=== PATIENT | female | born 1965 | race Caucasian/White ===

== ENCOUNTER 2019-06-08 08:53 | Outpatient (CLI) | payer OTHER, SELFPAY ==
--- NOTE | 2019-06-08 09:01 | MM_ITS ---
WS: [id number] DIAGNOSTIC LEFT DIGITAL MAMMOGRAM WITH CAD LEFT ultrasound, limited HISTORY: ABNORMAL MAMMOGRAM LT BREAST COMPARISON: 11/10/2018, 09/29/2018, 07/29/2017 and 07/19/2016 Technique: CC, MLO and ML views. Spot compression CC and MLO. Breast composition: The breasts are heterogeneously dense, which may obscure small masses. Asymmetry measuring 6.2 mm persists in the posterior fatty tissue. This abnormality is just above the nipple l ine on the lateral projection. No increase in size on prior studies. LEFT breast ultrasound, limited. Ultrasound directed from the 11-3 o'clock axis. There is a small cyst at 12:00, 5 cm from the nipple measuring 4 x 4 by 5 mm. There is a minimally complex ovoid cyst at 2:00, 3 cm from the nipple measur ing 9 x 3 x 5 mm. This may correspond to the abnormality on the mammogram. There are no suspicious fi ndings to suggest malignancy by ultrasound. MM/[place] [id number] IMPRESSION: BI-RADS: 3-Probably Benign FOLLOW UP: 6 Month Follow-up Patient to return for annual mammogram in September 2019. Diagnostic imaging of the LEFT breast should also be obtained. At that time the mass in the posterior LEF T breast should be reevaluated by additional views and mammography to continue to document stability.
== END 2019-06-08 08:54 | disposition home or self-care (01) ==
LOC: RADSHAW 08:57
PROVIDERS: Visit Provider Obstetrics & Gynecology
DX: R92.8 Other abnormal and inconclusive findings on diagnostic imaging of breast (principal); N60.02 Solitary cyst of left breast
CPT/HCPCS: 76642; 77065

== ENCOUNTER → 2019-11-23 16:19 | Outpatient (BNVA) | payer OTHER, SELFPAY | PROVIDERS: Visit Provider Family Medicine | DX: G47.00 Insomnia, unspecified (principal); I10 Essential (primary) hypertension | CPT/HCPCS: 80053; 80061; 85025 ==

== ENCOUNTER 2019-12-11 09:36 | Outpatient (CLI) | payer OTHER, SELFPAY ==
--- NOTE | 2019-12-11 09:42 | US_ITS ---
WS: [id number] Left breast ultrasound, 12/11/2019 Clinical Data: abnormal mammogram of left breast Comparison: Left breast ultrasound, 06/08/2019. Findings: There are 2 cysts in the left breast unchanged. One cyst is 5 cm from the nipple 12:00 measuring 0.58 x 0.37 x 0.63 cm and the other is at 2:00 3 cm from the nipple measuring 0.36 x 0.46 x 0.98 cm. No i nternal echoes are seen. The borders are smooth and complete. US/US breast LT limited* [id number] Impression: 1. 2 small unchanging left breast cysts. 2. Recommend annual screening mammogram BIRADS: 2-Benign FOLLOW UP: See Report
--- NOTE | 2019-12-11 09:42 | MM_ITS ---
WS: [id number] Left breast diagnostic digital mammogram, 12/11/2019 Clinical Data: abnormal mammogram of left breast Comparison: 06/08/2019, 11/10/2018, 09/29/2018, 08/19/2017, 07/29/2017, 07/19/2016, 07/07/2015, 05/28/2014, 04/30, 07/04/2007, 07/02/2006, 02/22/2006, 01/29/2006. Findings: The left breast shows heterogeneous density. The density in the total aspect of left breast is still present but it has no suspicious findings. No spiculated masses or clustered calcifications are seen. There are no secondary signs of carcinoma. MM/[place] [id number] Impression: 1. Negative left breast mammogram. 2. Return for routine screening mammograms. BIRADS: 1-Negative FOLLOW UP: See Report The CAD land checker was used.
== END 2019-12-11 09:37 | disposition home or self-care (01) ==
PROVIDERS: PCP Family Medicine; Visit Provider Obstetrics & Gynecology
DX: R92.8 Other abnormal and inconclusive findings on diagnostic imaging of breast (principal)
CPT/HCPCS: 76642; 77065

== ENCOUNTER 2020-10-07 07:46 | Outpatient (CLI) | payer OTHER, SELFPAY ==
--- NOTE | 2020-10-07 07:50 | MM_ITS ---
WS: [id number] Bilateral screening digital mammogram, 10/07/2020 Clinical Data: SCREENING Comparison: 12/11/2019, 06/08/2019, 11/10/2018, 09/29/2018, 08/19/2017, 07/29/2017, 07/19/2016, 07/07/2015, 05/01, 05/26/2010, 07/04/2007, 07/02/2006, 02/22/2006, 01/29/2006. Findings: The breast parenchymal pattern shows heterogeneous density No spiculated masses or clustered calcifi cations are seen. There are no secondary signs of carcinoma. MM/[place] [id number] Impression: 1. Negative bilateral mammogram unchanged. 2. Recommend annual screening mammograms. BIRADS: 1-Negative FOLLOW UP: 1 Year Follow-up The CAD tool checker was used.
== END 2020-10-07 07:47 | disposition home or self-care (01) ==
LOC: RADSHAW 07:48
PROVIDERS: PCP Family Medicine; Visit Provider Family Medicine
DX: Z12.31 Encounter for screening mammogram for malignant neoplasm of breast (principal)
CPT/HCPCS: 77067

== ENCOUNTER → 2020-10-20 17:41 | Outpatient (BNVA) | payer OTHER, SELFPAY | PROVIDERS: PCP Family Medicine; Visit Provider Family Medicine | DX: E78.5 Hyperlipidemia, unspecified (principal); G47.00 Insomnia, unspecified; I10 Essential (primary) hypertension | CPT/HCPCS: 80053; 80061; 84443; 85025 ==

== ENCOUNTER → 2021-03-27 09:22 | Outpatient (BNVA) | payer OTHER, SELFPAY | PROVIDERS: PCP Family Medicine; Visit Provider Family Medicine Adult Medicine | DX: R30.9 Painful micturition, unspecified (principal) | CPT/HCPCS: 81000 ==

== ENCOUNTER → 2021-08-11 09:46 | Outpatient (BNVA) | payer BC, SELFPAY | PROVIDERS: PCP Family Medicine; Visit Provider Family Medicine | DX: E78.5 Hyperlipidemia, unspecified (principal); G47.00 Insomnia, unspecified; I10 Essential (primary) hypertension | CPT/HCPCS: 80053; 80061; 84443; 85025 ==

== ENCOUNTER 2021-10-13 07:23 | Outpatient (CLI) | payer BC, SELFPAY ==
--- NOTE | 2021-10-13 07:28 | MM_ITS ---
WS: [id number] SCREENING DIGITAL BREAST TOMOSYNTHESIS MAMMOGRAM WITH CAD HISTORY: SCREEN COMPARISON: 10/07/2020, 12/11/2019, 09/29/2018, 06/08/2019 Bilateral CC and MLO with tomosynthesis and synthetic mammography submitted. Computer aided detection analyzed. Breast composition: There are scattered areas of fibroglandular density. Seen best on the RIGHT CC pr ojection at a middle depth is an area of architectural distortion seen on image 35/56. Not definitely visualized on the lateral projection but may be just above the nipple line. There is an asymmetry in the posterior LEFT breast which has been present on multiple prior examinations posterior and centra l to the nipple. This is at 12:00. MM/[place] [id number] IMPRESSION: BI-RADS: 0-Incomplete: Need additional imaging evaluation FOLLOW UP: Need Additional Imaging RIGHT breast: Spot compression views (CC and MLO). True ML. Ultrasound to follo w if abnormality persists.
== END 2021-10-13 07:24 | disposition home or self-care (01) ==
LOC: RAD 07:23
PROVIDERS: PCP Family Medicine; Visit Provider Surgery
DX: Z12.31 Encounter for screening mammogram for malignant neoplasm of breast (principal)
CPT/HCPCS: 77063; 77067

== ENCOUNTER → 2021-11-13 08:53 | Outpatient (BNVA) | payer BC, SELFPAY | PROVIDERS: PCP Family Medicine; Visit Provider Family Medicine | DX: E78.5 Hyperlipidemia, unspecified (principal) | CPT/HCPCS: 80061 ==

== ENCOUNTER 2021-11-21 08:32 | Outpatient (CLI) | payer BC, SELFPAY ==
--- NOTE | 2021-11-21 08:43 | MM_ITS ---
WS: [id number] ADDITIONAL VIEWS RIGHT MAMMOGRAM WITH DIGITAL BREAST TOMOSYNTHESIS. RIGHT BREAST ULTRASOUND HISTORY: Architectural distortion RIGHT breast. COMPARISON: 10/13/2021 and 10/07/2020 and 10/26/2018 RIGHT MAMMOGRAM: Spot compression views and true ML with digital breast tomosynthesis and SM. Architectural distortion and increased density persists along the 12:00 axis. This distortion extends from medial to lateral. RIGHT BREAST ULTRASOUND 2-D and color Doppler imaging submitted. Ultrasound directed to the superior breast centered at 12:00. There is no mass identified. There is m ild distortion along the 12:00 axis. No mass is identified. These changes on the mammogram and ultras ound are most likely all due to the prior surgical biopsy. MM/[place] [id number] IMPRESSION: BI-RADS: 2-Benign FOLLOW UP: 1 Year Follow-up Architectural distortion corresponds to the prior surgical biopsy. No underlyin g mass.
== END 2021-11-21 08:33 | disposition home or self-care (01) ==
PROVIDERS: PCP Family Medicine; Visit Provider Family Medicine
DX: R92.8 Other abnormal and inconclusive findings on diagnostic imaging of breast (principal)
CPT/HCPCS: 76642; 77061

== ENCOUNTER → 2022-02-12 12:28 | Outpatient (BNVA) | payer OTHER, SELFPAY | PROVIDERS: PCP Family Medicine; Visit Provider Family Medicine | DX: M25.552 Pain in left hip (principal) | CPT/HCPCS: 73502 ==

== ENCOUNTER 2022-03-29 06:00 | Outpatient (RCR) | payer OTHER, SELFPAY | END 2022-04-28 23:59 | disposition home or self-care (01) | LOC: TPT 06:00 | PROVIDERS: PCP Family Medicine; Visit Provider Family Medicine | DX: M70.72 Other bursitis of hip, left hip (principal) | CPT/HCPCS: 97110; 97162 ==

== ENCOUNTER 2022-04-29 06:00 | Outpatient (RCR) | payer OTHER, MEDICAID, SELFPAY | END 2022-05-29 23:59 | disposition home or self-care (01) | LOC: TPT 06:00 | PROVIDERS: PCP Family Medicine; Visit Provider Family Medicine | DX: M70.72 Other bursitis of hip, left hip (principal) | CPT/HCPCS: 97110 ==

== ENCOUNTER → 2022-07-03 11:29 | Outpatient (BNVA) | payer OTHER, MEDICAID, SELFPAY | PROVIDERS: PCP Family Medicine; Visit Provider Family Medicine | DX: E78.5 Hyperlipidemia, unspecified (principal); I10 Essential (primary) hypertension | CPT/HCPCS: 80053; 80061; 84443; 85025 ==

== ENCOUNTER → 2022-10-15 10:48 | Outpatient (BNVA) | payer OTHER, MEDICAID, SELFPAY | PROVIDERS: PCP Family Medicine; Referring Provider Family Medicine; Visit Provider Student in an Organized Health Care Education/Training Program | DX: M19.041 Primary osteoarthritis, right hand (principal); M65.341 Trigger finger, right ring finger; M72.0 Palmar fascial fibromatosis [Dupuytren] | CPT/HCPCS: 73130 ==

== ENCOUNTER 2022-11-26 07:54 | Outpatient (CLI) | payer OTHER, MEDICAID, SELFPAY ==
--- NOTE | 2022-11-26 08:08 | MM_ITS ---
WS: [id number] BILATERAL SCREENING DIGITAL TOMOSYNTHESIS MAMMOGRAM WITH CAD HISTORY: SCREENING COMPARISON: 12/11/2019, 09/29/2018, 10/07/2019, 10/07/2020 Bilateral CC and MLO views with tomosynthesis and synthetic mammography submitted. Computer aided det ection analyzed. Breast composition: The breasts are heterogeneously dense, which may obscure small masses. No suspici ous masses, microcalcifications or architectural distortion. There are 2 nodules/asymmetries in the L EFT breast which have been present since at least 2018. Both of these asymmetries are in the posterio r breast. One is at 12:00 and one in the upper outer quadrant. Prior imaging studies demonstrated no significant findings and cysts were identified. RIGHT breast is negative. MM/[place] [id number] IMPRESSION: BI-RADS: 2-Benign FOLLOW UP: 1 Year Follow-up
== END 2022-11-26 07:55 | disposition home or self-care (01) ==
PROVIDERS: PCP Family Medicine; Visit Provider Family Medicine
DX: Z12.31 Encounter for screening mammogram for malignant neoplasm of breast (principal)
CPT/HCPCS: 77063; 77067

== ENCOUNTER 2023-01-03 05:43 | Day surgery (SDC) | payer OTHER, MEDICAID, SELFPAY ==
[2023-01-02 09:37] VITALS: BMI 24.1
[2023-01-03 06:01] VITALS: BP 180/90; PULSE 52; RESP 16; TEMP 37.1; O2SAT 97
[2023-01-03] MEDS: sodium chloride 0.9% 1,000 ML 30 ML IV (06:05)
[2023-01-03] MEDS: ketorolac 30 mg/mL INJ IVP (06:05)
[2023-01-03] MEDS: acetaminophen 1,000 MG/100 ML PIGGYBACK 400 MG IV (06:05)
[2023-01-03 06:24] VITALS: BMI 24.1
--- NOTE | 2023-01-03 06:51 | ANES.PREANE2 ---
Pre-Anesthetic Assessment Height/Weight: Height 1.57 m Weight 59.874 kg Temp Pulse Resp BP Pulse Ox O2 Del Method 98.7 F 52 L 16 180/90 97 Room Air 01/03/23 06:01 01/03/23 06:01 01/03/23 06:01 01/03/23 06:01 01/03/23 06:01 01/03/23 06:02 Preop Diagnosis: Right middle and right ring finger trigger Operation Date: 01/03/23 07:00 Proposed Procedures p RIGHT MIDDLE AND RING FINGER TRIGGER FINGER RELEASE [id number], M65.30 M72.0(Right) - Juan Vicky, DO Familial anesthetic complications: None Was Beta Sami taken within 24 hours: N/A Was Clonidine taken within 24 hours: N/A Last intake: Intake Last Liquid Date 01/02/23 Last Liquid Time 23:00 Last Solid Date 01/02/23 Last Solid Time 23:00 Social No alcohol and No tobacco Exam alert, oriented x 3, clear to auscultation bilaterally and regular rate & rhythm Airway Mallampati: Class I Dentition: full CV/HEM Hypertension Metabolic Hyperlipidemia Anesthetic Plan ASA status: 2 Anesthesia: MAC Risk of > 500 ml blood loss (7ml/kg in children): No Medications/Allergies Home Medications Medication Instructions Recorded Confirmed Last Taken Type ascorbic acid (vitamin C) 1,000 mg 500 mg PO DAILY 08/11/21 01/02/23 01/01/23 History tablet aspirin 81 mg tablet,delayed 81 mg PO DAILY 08/11/21 01/02/23 01/02/23 History release (Adult Low Dose Aspirin) cholecalciferol (vitamin D3) 25 25 mcg PO DAILY 08/11/21 01/02/23 11/13/22 History mcg (1,000 unit) capsule zinc gluconate 50 mg tablet 50 mg PO DAILY 02/12/22 01/02/23 01/02/23 History buspirone 7.5 mg tablet See Rx Instructions .Route 06/06/22 01/02/23 01/02/23 Rx .COMPLEX #60 tabs omega 9-oth-cre-fish oil 1,000 mg 1 cap PO BID #60 caps 07/03/22 01/02/23 01/02/23 Rx (120 mg-180 mg) capsule (Fish Oil) fenofibrate 160 mg tablet 160 mg PO DAILY #30 tabs 10/12/22 01/02/23 01/02/23 Rx temazepam 30 mg capsule 30 mg PO .qhs PRN sleep #30 caps 10/12/22 01/02/23 01/02/23 Rx estradiol 1 mg tablet See Rx Instructions .Route 11/26/22 01/02/23 01/02/23 Rx .COMPLEX #30 tabs lisinopril 20 mg tablet See Rx Instructions .Route 11/26/22 01/02/23 01/02/23 Rx .COMPLEX #60 tabs metoprolol tartrate 25 mg tablet See Rx Instructions .Route 11/26/22 01/02/23 01/02/23 Rx .COMPLEX #60 tabs rosuvastatin 5 mg tablet See Rx Instructions .Route 12/28/22 01/02/23 01/01/23 Rx .COMPLEX #30 tabs Allergies Allergy/AdvReac Type Severity Reaction Status Date / Time Sulfa (Sulfonamide Allergy hives rash Verified 01/02/23 09:34 Antibiotics) Current Medications Generic Name Dose Route Start Last Admin Trade Name Freq PRN Reason Stop Dose Admin Sodium Chloride 1,000 mls @ 30 mls/hr 01/03/23 06:00 01/03/23 06:25 Sodium Chloride 0.9% IV 01/04/23 05:59 30 mls/hr .Q24H JENNIFER Infusion PFS Anesthesia Medical History Chronic headache Fibroadenoma of right breast Identified on mammogram in 2018. Had ultrasound-guided biopsy with path showing fibroadenoma. Had removed later that year. Hyperlipidemia Hypertension Surgical History H/O right breast biopsy (09/16/17) Ultrasound-guided needle biopsy. Right breast lump identified on mammogram. Performed by Dr. Russell in radiology History of lumpectomy of right breast (~02/2018) Performed by Dr. Estrada. Path showed fibroadenoma History of tonsillectomy and adenoidectomy S/P total abdominal hysterectomy (07/26/00) AMI with Reyes. Dx: Menometrorrhagia, Anemia, LIYA. Performed by Dr. Torres at [facility] in [place], [place] Family History Father Heart disease Diabetes Hypertension Hypercholesteremia Mother Hypertension Hypercholesteremia Breast cancer Phylloides tumor of the breast Social History Smoking and tobacco status: never smoked Alcohol intake: never Substance/Drug Use: never Data Anesthesia 01/03/23 06:10 Cardiac Studies: No Data to Display
[2023-01-03 06:55] LABS: Blood Urea Nitrogen 12 mg/dL (6-20); Calcium 9.7 mg/dL (8.5-10.5); Carbon Dioxide 23 mmol/L (22-29); Chloride 106 mmol/L (98-107); Glomerular Filtration Rate 126.3 mL/min (90-130); Glucose 90 mg/dL (65-115); Osmolality Calculated 291 mOsm/kg (285-295); Sodium 141 mmol/L (136-145)
--- NOTE | 2023-01-03 06:57 | W.PM.OPSUD ---
Surgery/Procedure H&P Update DATE OF PROCEDURE: January 03, 2023 DATE H&P PERFORMED: 12/11/22 CHANGES TO PREVIOUS DOCUMENTATION: None no change in HPI visit from office visit on 12/11/2022. Patient has right middle and right ring finger triggers. She understands and the procedure the risk benefits complication alternatives with surgery. She is failed conservative treatment elects proceed with surgical intervention all questions answered at this time proceed with right middle and ring finger trigger releases. PREOP DIAGNOSIS: Right middle and right ring finger trigger PRIMARY INDICATION FOR PROCEDURE: Right middle and right ring finger trigger PLANNED PROCEDURE: Operation Date: 01/03/23 07:00 Proposed Procedures p RIGHT MIDDLE AND RING FINGER TRIGGER FINGER RELEASE [id number], M65.30 M72.0(Right) - Juan Perry DO
[2023-01-03] MEDS: ceFAZolin 2,000 MG in sodium chloride 0.9% (plus) 50 ML 100 MG IV (07:04)
[2023-01-03 07:11] LABS: Anion Gap 16.2 (5-19); Potassium 4.2 mmol/L (3.5-5.1)
[2023-01-03] MEDS: BUPivacaine 0.5% INJ 10 mL 5 ML INJECTION (07:20)
[2023-01-03] MEDS: ROPivacaine 0.5% SDV 30 mL 25 MG INJECTION (07:20)
--- NOTE | 2023-01-03 07:51 | PM.OP2 ---
Brief Operative Note Date of procedure: 01/03/23 Pre-op diagnosis: Right middle and right ring finger trigger Post-op diagnosis: same Procedure Done: Right middle finger trigger release Right ring finger trigger release Surgeon: Juan Perry Estimated blood loss (mL): 2 Complications: None Post-op Plan: Patient taken to PACU in stable condition recovering well receive appropriate discharge instruction as well as pain medication postoperatively. Encourage finger range of motion. We will follow-up in the orthopedic office in 2 weeks. Condition: stable Disposition: same day Coding Level of Care Code Acute Code for Ame Lee
[2023-01-03 07:52] VITALS: BP 131/68; PULSE 52; RESP 18; TEMP 36.1; O2SAT 98
--- NOTE | 2023-01-03 07:52 | P.PCN_ITS ---
PACU note Narrative: Patient taken to PACU in stable condition recovering well fingertips warm well- perfused brisk capillary refill less than 2 seconds right hand upper extremity dressings clean dry and intact. She is able to wiggle her fingers she has some decreased sensation secondary to local anesthesia. Exam: awake Disposition: discharged
--- NOTE | 2023-01-03 07:53 | P.OP_ITS ---
Operative Report Date of procedure: January 03, 2023 Surgeon: Juan Perry DO Procedure: Post-op diagnosis: Same Procedure done: Right middle finger?trigger?release Right ring finger trigger release Surgeon: Juan Perry DO Estimated blood loss: 2 cc Tourniquet time 11 minutes Complications: None Condition: stable Disposition: same day Brief History: Patient's been seen and worked up in the outpatient setting and findings consistent with preoperative diagnosis of right middle and right ring finger?trigger.? Patient failed conservative treatment of cortisone injection pain is completely returned. We talked about treatment options nonoperative versus operative intervention.? ?Patient understands the risk benefits complication alternatives of surgical nonsurgical treatment options.? Understan ding his risks with surgery patient elects proceed with surgical intervention.? Consent obtained in the office.? Here today to proceed with surgical intervention.? All questions answered. Procedure: Patient was seen and evaluated in the preoperative holding area.? Consent was reviewed and signed with patient.? Seen evaluated by Anesthesia Department.? Once cleared for surgery was brought back to the operative suite.? Kept in supine position on [facility]. Patient's right arm was then placed to the armboard.? A nonsterile tourniquet applied to the right upper arm.? Patient's right upper extremity was then prepped and draped in standard orthopedic fashion.? Final timeout performed.? Patient received appropriate preoperative antibiotics. Esmarch tourniquet was used exsanguinate the right upper extremity tourniquet insufflated to 250 mmHg. Under sterile aseptic technique local digital block was performed to the right middle and right ring finger.? Once appropriately anesthetized a standard oblique incision was made centering over the A1 nam of both fingers following patient's flexor crease.? Sharp scalpel incision was made only through skin and then switched to Littler dissection scissors and spread longitudinally directly over the flexor tendon sheath of the middle finger first.? I then mobilized both radially and ulnarly and Kasdan retractors were used and placed by my dental assistant medical assistant to protect neurovascular bundle.? Next I visualized the A1 nam and this was incised with a scalpel.? I then switched to dissection scissors and released the A1 nam both proximally as well as distally to its entirety.? Significant tendon sheath fluid was noted consistent with inflammation.? Mild fraying of the flexor tendons noted but no tear.? At this point I utilized a rag nail and pulled the tendons FDS and FDP out of the incision and no?triggering was noted.? Next focused my attention towards the ring finger. There was a thick band of fascia consistent with early Dupuytren's this was transected to come down directly over to the ring finger flexor tendon sheath. I then spread longitudinally, I then mobilized both radially and ulnarly and Kasdan retractors were used and placed by my dental assistant medical assistant to protect neurovascular bundle.? Next I visualized the A1 nam of the ring finger and this was incised with a scalpel.? I then switched to dissection scissors and released the A1 nam both proximally as well as distally to its entirety.? Significant tendon sheath fluid was noted consistent with inflammation.? Mild fraying of the flexor tendons noted but no tear.? At this point I utilized a rag nail and pulled the tendons FDS and FDP out of the incision and no?triggering was noted.? I then had anesthesia wake up the patient and patient was able to actively flex and extend with no?triggering.? This point thorough irrigation was performed.? Tourniquet deflated hemostasis satisfactory with bipolar.? I then subsequently closed the incision with interrupted nylon suture.? Xeroform 4 x 4's, Kerlix and an Jay wrap was applied for a bulky soft dressing.? Patient was then subsequently awakened from anesthesia and taken to PACU in stable condition tolerated procedure without issues. Disposition: Patient taken back in stable condition recovering well.? Patient will receive appropriate discharge instruction as well as pain medication postoperatively.? Patient to follow-up with me in the office in 2 weeks for repeat evaluation and incision check.? Patient understands that any questions or concerns and contact the office.? All questions answered.
[2023-01-03 07:55] VITALS: BP 126/64; PULSE 52; RESP 18; O2SAT 97
[2023-01-03 08:00] VITALS: BP 126/75; PULSE 53; RESP 17; O2SAT 97
[2023-01-03 08:06] VITALS: BP 132/82; PULSE 54; RESP 17; TEMP 36.1; O2SAT 99
[2023-01-03 08:33] VITALS: BP 145/73; PULSE 50; RESP 17; TEMP 36.2; O2SAT 100
--- NOTE | 2023-01-03 08:35 | ANE.PACU2 ---
Inpatient post-anesthesia follow up: Airway intact: Yes Vital signs: Temperature 97.2 F Pulse Rate 50 Respiratory Rate 17 Blood Pressure 145/73 Pulse Oximetry 100 Oxygen Delivery Me thod Room Air Oxygen Flow Rate Fraction of Inspir ed Oxygen Hydration adequate: Yes Nausea and vomiting: No Pain level: 1 Mental status: Baseline
== END 2023-01-03 08:35 | disposition home or self-care (01) ==
PROVIDERS: Anesthesiology; PCP Family Medicine; Visit Provider Student in an Organized Health Care Education/Training Program
PROC: (CPT 26055; principal; 2023-01-03 07:00)
DX: M65.331 Trigger finger, right middle finger (principal); M65.341 Trigger finger, right ring finger; I10 Essential (primary) hypertension; E78.5 Hyperlipidemia, unspecified; Z79.82 Long term (current) use of aspirin
CPT/HCPCS: 26055 ×2; 80048; J0131; J0690; J1885; J2250; J2704; J2795; J3010; J3490; J7030

== ENCOUNTER → 2023-04-09 13:59 | Outpatient (BNVA) | payer OTHER, MEDICAID, SELFPAY | PROVIDERS: PCP Family Medicine; Visit Provider Physician Assistant | DX: M25.541 Pain in joints of right hand; Z98.890 Other specified postprocedural states; M65.30 Trigger finger, unspecified finger; M79.641 Pain in right hand | CPT/HCPCS: 36415; 73130; 85025; 85651; 86140; 86160; 86162; 86200; 86235; 86255; 86376; 86431 ==

== ENCOUNTER 2023-04-16 14:51 | Outpatient (RCR) | payer OTHER, MEDICAID, SELFPAY | END 2023-04-28 23:59 | disposition home or self-care (01) | LOC: SOT 14:51 | PROVIDERS: PCP Family Medicine; Visit Provider Physician Assistant | DX: M25.541 Pain in joints of right hand (principal) | CPT/HCPCS: 97022; 97110; 97165 ==

== ENCOUNTER 2023-05-02 12:47 | Outpatient (RCR) | payer OTHER, MEDICAID, SELFPAY | END 2023-05-29 23:59 | disposition home or self-care (01) | LOC: SOT 12:47 | PROVIDERS: PCP Family Medicine; Visit Provider Physician Assistant | DX: M25.541 Pain in joints of right hand (principal) | CPT/HCPCS: 97022; 97035; 97110; 97140 ==

== ENCOUNTER → 2023-06-13 15:00 | Outpatient (BNVA) | payer OTHER, MEDICAID, SELFPAY | PROVIDERS: PCP Family Medicine; Visit Provider Physician Assistant | DX: M25.541 Pain in joints of right hand (principal); Z98.890 Other specified postprocedural states | CPT/HCPCS: 73130 ==

== ENCOUNTER → 2023-09-16 11:36 | Outpatient (BNVA) | payer OTHER, MEDICAID, SELFPAY | PROVIDERS: PCP Family Medicine; Visit Provider Family Medicine | DX: I10 Essential (primary) hypertension (principal); E78.5 Hyperlipidemia, unspecified; G47.00 Insomnia, unspecified | CPT/HCPCS: 80053; 80061; 84443; 85025 ==

== ENCOUNTER 2023-10-23 11:14 | Day surgery (SDC) | payer OTHER, MEDICAID, SELFPAY ==
[2023-10-23] VITALS (11 sets, daily range): BP systolic 109–144; BP diastolic 61–87; PULSE 56–91; RESP 15–19; TEMP 36.3–36.6; O2SAT 95–100; BMI 24.8
[2023-10-23] MEDS: scopolamine 1.5 Patch 1 PATCH TRANSDERMA (11:47)
[2023-10-23] MEDS: acetaminophen 1,000 MG/100 ML PIGGYBACK 400 MG IV (11:53)
--- NOTE | 2023-10-23 11:55 | W.PM.OPSUD ---
Surgery/Procedure H&P Update DATE OF PROCEDURE: October 23, 2023 DATE H&P PERFORMED: 09/24/23 H&P UPDATE INFORMATION: I have reviewed H&P completed within last 30 days, I have examined patient prior to procedure and No changes to prior documentation CHANGES TO PREVIOUS DOCUMENTATION: None. Patient at this point time is able to extend her digits as well as make a fist but she does have mechanical catching of the middle and the ring finger as well as some excessive scar over the middle finger. At this point in time we talked about her treatment options I do feel as though she does have good function of her hand but she just continues to have pain which enables what she gets to do on a regular basis pertaining to her work. We had a long thoughtful discussion about her treatment options nonoperative versus operative invention. At this point time through shared decision making she like to pursue a right middle and right ring finger trigger release revision with possible flexor digitorum superficialis ulnar slip excisions. Understands the ins and outs procedure risk benefits complication alternatives of surgery and through shared decision make elects proceed with surgical intervention. All questions answered at this time. PREOP DIAGNOSIS: Recurrent right middle and ring finger triggers PRIMARY INDICATION FOR PROCEDURE: Recurrent right middle and ring finger triggers PLANNED PROCEDURE: Operation Date: 10/23/23 12:55 Proposed Procedures p Trigger Finger Release Revision, Right Middle & Ring Fingers 31254 x2, [id number], M25.541, M65.341, M65.331(Right) - Juan Perry DO s Flexor Digitorum Superficialis Slip Excision, Possible(Right) - Juan Perry DO
[2023-10-23] MEDS: ketorolac 30 mg/mL INJ IVP (11:57)
[2023-10-23] MEDS: sodium chloride 0.9% 1,000 ML 30 ML IV (12:04)
[2023-10-23] MEDS: ceFAZolin 2,000 MG in sodium chloride 0.9% (plus) 50 ML 100 MG IV (12:18)
[2023-10-23] MEDS: ROPivacaine 0.5% SDV 30 mL 150 MG INJECTION (12:52)
[2023-10-23] MEDS: BUPivacaine 0.5% INJ 10 mL INJECTION (12:52)
--- NOTE | 2023-10-23 13:42 | W.PM.BPON ---
Date of Procedure: [10/23/2023] Surgeon: Juan Perry DO Jockey Valet(s): ZARINA Ramirez Procedure(s) performed: Right middle finger trigger release revision Right middle finger scar excision Right middle finger flexor tendon tenosynovectomy Right middle finger flexor digitorum superficialis ulnar slip excision Right Ring finger trigger release revision Right Ring finger scar excision Right Ring finger flexor tendon tenosynovectomy Right Ring finger flexor digitorum superficialis ulnar slip excision Findings of the procedure(s): Patient was found to have excessive scar and retriggering of the right middle and ring fingers. Underwent procedure as planned without issues or complications was able to pull each tendon as well as flex all the digits and there is no evidence of mechanical retriggering. Patient Toller procedure without issues or complications Estimated blood loss: 10 mL Specimen(s) removed: 2 x FDS ulnar slip excised Post-operative diagnosis: Right middle finger and ring finger recurrent trigger, with tenosynovitis
--- NOTE | 2023-10-23 13:46 | P.OP_ITS ---
Operative Report Date of procedure: October 23, 2023 Surgeon: Juan Perry DO Procedure: Preoperative diagnosis: Right middle finger recurrent triggering Right ring finger recurrent triggering Post-op diagnosis: Same Procedure done: Right middle finger trigger release revision Right middle finger scar excision Right middle finger flexor tendon tenosynovectomy Right middle finger flexor digitorum superficialis ulnar slip excision Right Ring finger trigger release revision Right Ring finger scar excision Right Ring finger flexor tendon tenosynovectomy Right Ring finger flexor digitorum superficialis ulnar slip excision Surgeon: Juan Perry DO Estimated blood loss: 10cc Tourniquet time 49mins Complications: None Condition: stable Disposition: same day Brief History: Patient's been seen and worked up in the outpatient setting and findings consistent with recurrent trigger finger to both the right middle and right ring finger. At this point in time given this is a recurrent trigger and she has significant scar tissue buildup and triggering we talked about her treatment options in detail as far as doing nothing versus surgical intervention. We talked about treatment options nonoperative versus operative intervention.? ?Patient understands the risk benefits complication alternatives of surgical nonsurgical treatment options.? Understanding pt risks with surgery pt elects proceed with surgical intervention.? Consent obtained for Right middle and right ring finger trigger release revisions this with possible flexor digitorum superficialis ulnar slip excisions here today to proceed with surgical intervention.? All questions answered. Procedure: Patient was seen and evaluated in the preoperative holding area.? Consent was reviewed and signed with patient.? Seen evaluated by Anesthesia Department.? Originally talked about possible wide-awake anesthesia however patient wished to be put to sleepby Anesthesia Department. Once cleared for surgery was brought back to the operative suite.? Placed in supine position on the OR table all bony prominences well-padded patient properly secured to the bed.? Patient's right arm was then placed to the armboard.? A nonsterile tourniquet applied to the right upper arm.? Patient's right upper extremity was then prepped and draped in standard orthopedic fashion.? Final timeout performed.? Patient received nilsa ropriate preoperative antibiotics. Esmarch tourniquet was used exsanguinate the right upper extremity tourniquet insufflated to 250 mmHg. Under sterile aseptic technique local digital block was performed to the right middle and ring finger.? Patient had 1 previous large incision however she definitely through significant hypertrophic scar and as result I do keep this more to a minimum which started off with the left ring finger utilized the previous incision oblique in the flexor crease just over the A1 nam I subsequently made sharp scalpel excision just through skin only switch to Littler dissection scissors and utilized these to spread longitudinally in the plane of the neurovascular bundle Kasdan retractors were used to protect the neurovascular bundle and then came down directly over the previous trigger release there was significant scar which was all excised to its entirety and came down directly over a reformed A1 nam with significant scar tissue I then subsequently released the A1 nam to its entirety to the A2 nam the tendon was significantly inflamed and I subsequently utilizing dissection scissors performed a tenosynovectomy of the tendons of the flexor tendon sheath. Subtle triggering was still noted so my decision was made to proceed with FDS ulnar slip excision. I subsequently made a small transverse incision over the PIP joint within Poonam's lines I came down directly over the PIP joint sharp scalpel incision was made through skin tissue only I subsequently made a small longitudinal split over the sheath at this level distal to the A2 nam and at the level of the A3 nam this was subsequently opened up and I shoveled a small wire from distal to proximal and came out the proximal incision. At this point I used my dissection scissors identified the chiasm and the ulnar slip of FDS past PDS suture around this portion and then subsequently loop to this suture through the metal wire and then passed this through the tunnel. I subsequently utilized dissection scissors to excise the proximal portion of the slip pulling the suture was able to deliver the slip from the proximal incision to the distal incision then subsequently excised the ulnar slip at its distal insertion site while protecting the neurovascular bundle. This significantly debulk the tunnel took the finger through range of motion and there was no evidence of triggering as well as pulling any of the tendons through the tunnel. This completed my work year I subsequently thoroughly irrigated wet sponge was placed in the site and proceeded with the right middle finger trigger release revision. Again utilized the previous oblique incision centering over the A1 nam of the right middle finger. I subsequently made sharp scalpel excision just through skin only switch to Littler dissection scissors and utilized these to spread longitudinally in the plane of the neurovascular bundle Kasdan retractors were used to protect the neurovascular bundle and then came down directly over the previous trigger release there was significant scar which was all excised to its entirety and came down directly over a reformed A1 nam with significant scar tissue I then subsequently released the A1 nam to its entirety to the A2 nam the tendon was significantly inflamed and I subsequently utilizing dissection scissors performed a tenosynovectomy of the tendons of the flexor tendon sheath. triggering was still noted so my decision was made to proceed with FDS ulnar slip excision. I subsequently made a small transverse incision over the PIP joint within Poonam's lines I came down directly over the PIP joint sharp scalpel incision was made through skin tissue only I subsequently made a small longitudinal split over the sheath at this level distal to the A2 nam and at the level of the A3 nam this was subsequently opened up and I shoveled a small wire from distal to proximal and came out the proximal incision. At this point I used my dissection scissors identified the chiasm and the ulnar slip of FDS past PDS suture around this portion and then subsequently loop to this suture through the metal wire and then passed this through the tunnel. I subsequently utilized dissection scissors to excise the proximal portion of the slip pulling the suture was able to deliver the slip from the proximal incision to the distal incision then subsequently excised the ulnar slip at its distal insertion site while protecting the neurovascular bundle. This significantly debulk the tunnel took the finger through range of motion and there was no lucia dence of triggering as well as pulling any of the tendons through the tunnel. This point I was satisfied with the tendon excursion and no evidence of triggering. I then subsequently let down the tourniquet maintained exact hemostasis as well as thoroughly irrigated the wound bed. I then subsequently closed the incision with interrupted nylon suture.? Xeroform 4 x 4's, Kerlix and an Jay wrap was applied for a bulky soft dressing.? Patient was then subsequently awakened from anesthesia and taken to PACU in stable condition tolerated procedure without issues. Disposition: Patient taken back in stable condition recovering well.? Patient will receive appropriate discharge instruction as well as pain medication postoperatively.? Patient to follow-up with ortho in the office in 2 weeks for r epeat evaluation and incision check.? Patient understands that any questions or concerns and contact the office.? All questions answered.
--- NOTE | 2023-10-23 15:00 | ANE.PACU2 ---
Inpatient post-anesthesia follow up: Airway intact: Yes Vital signs: Temperature 98 F Pulse Rate 78 Respiratory Rate 16 Blood Pressure 116/74 Pulse Oximetry 96 Oxygen Delivery Me thod Room Air Oxygen Flow Rate 6 Fraction of Inspir ed Oxygen Hydration adequate: Yes Nausea and vomiting: No Pain level: 1 Mental status: Baseline
== END 2023-10-23 15:05 | disposition home or self-care (01) ==
PROVIDERS: PCP Family Medicine; Visit Provider Student in an Organized Health Care Education/Training Program
PROC: (CPT 26055; principal; 2023-10-23 12:45)
PROC: (CPT 26055; 2023-10-23 12:45)
DX: M65.331 Trigger finger, right middle finger (principal); M65.341 Trigger finger, right ring finger; Z79.82 Long term (current) use of aspirin
CPT/HCPCS: 26055 ×2; C1713; J0131; J0690; J1100; J1885; J2250; J2405; J2704; J2795; J3010; J3490; J7030

== ENCOUNTER 2023-10-25 06:00 | Outpatient (RCR) | payer OTHER, MEDICAID, SELFPAY | END 2023-10-27 23:59 | disposition home or self-care (01) | LOC: SOT 06:00 | PROVIDERS: Visit Provider Student in an Organized Health Care Education/Training Program | DX: Z47.89 Encounter for other orthopedic aftercare (principal) | CPT/HCPCS: 97166 ==

== ENCOUNTER 2023-10-28 06:00 | Outpatient (RCR) | payer OTHER, MEDICAID, SELFPAY | END 2023-11-27 23:59 | disposition home or self-care (01) | LOC: SOT 06:00 | PROVIDERS: Visit Provider Student in an Organized Health Care Education/Training Program | DX: Z47.89 Encounter for other orthopedic aftercare (principal) | CPT/HCPCS: 97022; 97110; 97140 ==

== ENCOUNTER 2023-11-20 11:04 | Day surgery (SDC) | payer OTHER, MEDICAID, SELFPAY ==
[2023-11-20 11:33] VITALS: BP 147/75; PULSE 48; RESP 18; TEMP 36.5; O2SAT 99; BMI 25.0
[2023-11-20] MEDS: sodium chloride 0.9% 1,000 ML 30 ML IV (11:38)
--- NOTE | 2023-11-20 12:29 | ANES.PREANE2 ---
Pre-Anesthetic Assessment Height/Weight: Height 1.57 m Weight 62.142 kg Temp Pulse Resp BP Pulse Ox O2 Del Method 97.7 F 48 L 18 147/75 99 Room Air 11/20/23 11:33 11/20/23 11:33 11/20/23 11:33 11/20/23 11:33 11/20/23 11:33 11/20/23 11:33 Operation Date: 11/20/23 12:15 Proposed Procedures p Colonoscopy 68593, G0105 , K59.04, K62.89, Z80.0(Not Applicable) - Mitchell Ndiaye DO Familial anesthetic complications: none Was Beta Sami taken within 24 hours: Yes Was Clonidine taken within 24 hours: N/A Last intake: Intake Last Liquid Date 11/19/23 Last Liquid Time 19:00 Last Solid Date 11/19/23 Last Solid Time 09:00 Social No alcohol and No tobacco Exam alert and oriented x 3 Airway Submandibular: within normal limits Cervical ROM: within normal limits Mallampati: Class I Dentition: full History/ROS No significant history except as noted Pulmonary None reported CV/HEM Hypertension None reported Hepatic None reported GI None reported Metabolic Hyperlipidemia Neuropsych Headache Anesthetic Plan ASA status: 2 Anesthesia: Anesthesia Evaluation, General and MAC Risk of > 500 ml blood loss (7ml/kg in children): No Medications/Allergies Home Medications Medication Instructions Recorded Confirmed Last Taken Type ascorbic acid (vitamin C) 1,000 mg 500 mg PO DAILY 08/11/21 11/20/23 3 Months Ago History tablet ~08/21/23 aspirin 81 mg tablet,delayed 81 mg PO DAILY 08/11/21 11/20/23 11/18/23 History release (Adult Low Dose Aspirin) temazepam 30 mg capsule 30 mg PO .[facility] PRN sleep #30 caps 09/16/23 11/20/23 11/19/23 Rx amlodipine 10 mg tablet 10 mg PO DAILY #90 tabs 10/08/23 11/20/23 11/18/23 Rx estradiol 1 mg tablet 1 mg PO DAILY 10/23/23 11/20/23 11/19/23 History fenofibrate 160 mg tablet 160 mg PO DAILY 10/23/23 11/20/23 11/19/23 History rosuvastatin 5 mg tablet 5 mg PO DAILY 10/23/23 11/20/23 11/18/23 History metoprolol tartrate 25 mg tablet 25 mg PO BID 11/18/23 11/20/23 11/20/23 History 0800 omega 8-bie-syz-fish oil 1,000 mg 1 cap PO DAILY 11/18/23 11/20/23 11/18/23 History (120 mg-180 mg) capsule (Fish Oil) Allergies Allergy/AdvReac Type Severity Reaction Status Date / Time Sulfa (Sulfonamide Allergy hives rash Verified 11/18/23 11:36 Antibiotics) Current Medications Generic Name Dose Route Start Last Admin Trade Name Freq PRN Reason Stop Dose Admin Sodium Chloride 1,000 mls @ 30 mls/hr 11/20/23 11:15 11/20/23 11:38 Sodium Chloride 0.9% IV 11/21/23 11:14 30 mls/hr .Q24H JENNIFER Administration PFSH Anesthesia Medical History Family history of colon cancer Fibroadenoma of right breast Identified on mammogram in 2017. Had ultrasound-guided biopsy with path showing fibroadenoma. Had removed later that year. Chronic headache Hyperlipidemia Hypertension Surgical History History of lumpectomy of right breast (~02/2018) Performed by Dr. Estrada. Path showed fibroadenoma H/O right breast biopsy (09/16/17) Ultrasound-guided needle biopsy. Right breast lump identified on mammogram. Performed by Dr. Russell in radiology S/P total abdominal hysterectomy (07/26/00) AMI with Reyes. Dx: Menometrorrhagia, Anemia, LIYA. Performed [facility] Dr. Torres at [facility] [place], [place] History of tonsillectomy and adenoidectomy Family History Father Heart disease Diabetes Hypertension Hypercholesteremia Colon cancer Mother Hypertension Hypercholesteremia Breast cancer Phylloides tumor of the breast Social History Smoking and tobacco/nicotine status: never used tobacco/nicotine Alcohol intake: never Substance/Drug Use: never Data Anesthesia Cardiac Studies: No Data to Display
--- NOTE | 2023-11-20 13:11 | PM.HP ---
Providers/Chief Complaint Primary Care Provider: Jayne Park MD Chief Complaint: K59.04 History of Present Illness Amy Zhang is a 58 year old female Review of Systems General: Reports: 10 or more systems reviewed and unremarkable except in HPI and below Medications/Allergies Home Medications Medication Instructions Recorded Confirmed Last Taken Type ascorbic acid (vitamin C) 1,000 mg 500 mg PO DAILY 08/11/21 11/20/23 3 Months Ago History tablet ~08/21/23 aspirin 81 mg tablet,delayed 81 mg PO DAILY 08/11/21 11/20/23 11/18/23 History release (Adult Low Dose Aspirin) temazepam 30 mg capsule 30 mg PO .qhs PRN sleep #30 caps 09/16/23 11/20/23 11/19/23 Rx amlodipine 10 mg tablet 10 mg PO DAILY #90 tabs 10/08/23 11/20/23 11/18/23 Rx estradiol 1 mg tablet 1 mg PO DAILY 10/23/23 11/20/23 11/19/23 History fenofibrate 160 mg tablet 160 mg PO DAILY 10/23/23 11/20/23 11/19/23 History rosuvastatin 5 mg tablet 5 mg PO DAILY 10/23/23 11/20/23 11/18/23 History metoprolol tartrate 25 mg tablet 25 mg PO BID 11/18/23 11/20/23 11/20/23 History 0800 omega 6-viw-pwm-fish oil 1,000 mg 1 cap PO DAILY 11/18/23 11/20/23 11/18/23 History (120 mg-180 mg) capsule (Fish Oil) Allergies Allergy/AdvReac Type Severity Reaction Status Date / Time Sulfa (Sulfonamide Allergy hives rash Verified 11/18/23 11:36 Antibiotics) PFSH Acute PFSH: Medical History Family history of colon cancer Fibroadenoma of right breast Identified on mammogram in 2017. Had ultrasound-guided biopsy with path showing fibroadenoma. Had removed later that year. Chronic headache Hyperlipidemia Hypertension Surgical History History of lumpectomy of right breast (~02/2018) Performed by Dr. Estrada. Path showed fibroadenoma H/O right breast biopsy (09/16/17) Ultrasound-guided needle biopsy. Right breast lump identified on mammogram. Performed by Dr. Russell in radiology S/P total abdominal hysterectomy (07/26/00) AMI with Amy. Dx: Menometrorrhagia, Anemia, LIYA. Performed by Dr. Torres at [facility] in [place], [place] History of tonsillectomy and adenoidectomy Family History Father Heart disease Diabetes Hypertension Hypercholesteremia Colon cancer Mother Hypertension Hypercholesteremia Breast cancer Phylloides tumor of the breast Social History Smoking and tobacco/nicotine status: never used tobacco/nicotine Alcohol intake: never Substance/Drug Use: never Vitals/I&O/Wt Last Vital Signs Temp 97.7 F 11/20/23 11:33 Pulse 48 L 11/20/23 11:33 Resp 18 11/20/23 11:33 BP 147/75 11/20/23 11:33 Pulse Ox 99 11/20/23 11:33 O2 Del Method Room Air 11/20/23 11:33 Weight last 48 hrs Weight 137 lb A&P Assessment and plan (1) Screening for colon cancer: Plan Colonoscopy Attestations Medical Necessity Statement*: Home Coding Level of Care Code Acute Code for Chg Fwd Diagnoses Screening for colon cancer Z12.11
[2023-11-20 13:28] VITALS: BP 99/59; PULSE 60; RESP 14; TEMP 36.1; O2SAT 98
[2023-11-20 13:48] VITALS: BP 98/66; PULSE 58; RESP 16; O2SAT 99
[2023-11-20 13:55] VITALS: BP 104/66; PULSE 58; O2SAT 100
--- NOTE | 2023-11-20 14:05 | ANE.PACU2 ---
Inpatient post-anesthesia follow up: Airway intact: Yes Vital signs: Temperature 97.0 F Pulse Rate 58 Respiratory Rate 16 Blood Pressure 104/66 Pulse Oximetry 100 Oxygen Delivery Me thod Room Air Oxygen Flow Rate Fraction of Inspir ed Oxygen Hydration adequate: Yes Nausea and vomiting: No Pain level: 1 Mental status: Baseline
== END 2023-11-20 14:07 | disposition home or self-care (01) ==
PROVIDERS: PCP Family Medicine; Visit Provider Surgery
PROC: 0DJD8ZZ Inspection of Lower Intestinal Tract, Via Natural or Artificial Opening Endoscopic (ICD-10-PCS; CPT 45378; principal; 2023-11-20 12:15)
DX: K59.04 Chronic idiopathic constipation (principal); K62.89 Other specified diseases of anus and rectum; Z80.0 Family history of malignant neoplasm of digestive organs; I10 Essential (primary) hypertension; E78.5 Hyperlipidemia, unspecified; Z79.82 Long term (current) use of aspirin
CPT/HCPCS: 45378; J2704; J7030

== ENCOUNTER 2023-11-28 06:00 | Outpatient (RCR) | payer OTHER, MEDICAID, SELFPAY | END 2023-12-28 23:59 | disposition home or self-care (01) | LOC: SOT 06:00 | PROVIDERS: PCP Family Medicine; Visit Provider Student in an Organized Health Care Education/Training Program | DX: M65.341 Trigger finger, right ring finger (principal); M65.331 Trigger finger, right middle finger | CPT/HCPCS: 97022; 97110; 97140 ==

== ENCOUNTER 2023-11-29 07:45 | Outpatient (CLI) | payer OTHER, MEDICAID, SELFPAY ==
--- NOTE | 2023-11-29 07:46 | MM_ITS ---
WS: [id number] Bilateral screening 3D tomosynthesis digital mammogram, 11/29/2023 Clinical Data: SCREENING Comparison: 11/26/2022, 11/21/2021, 10/13/2021, 10/07/2020, 12/11/2019, 06/08/2019, 11/10/2018, 09/29/2018, , 07/29/2017, 07/19/2016, 07/07/2015, 05/28/2014, 05/26/2010, 07/04/2007, 07/02/2006, 02/22/2006, 006. Findings: The breast parenchymal pattern shows heterogeneous density. No spiculated masses or clustered calcifi cations are seen. There are no secondary signs of carcinoma. There are lymph nodes in both axilla. MM/[place] [id number] Impression: 1. Negative bilateral mammogram unchanged. 2. Recommend annual screening mammograms. BIRADS: 1-Negative FOLLOW UP: 1 Year Follow-up The CAD roving or yarn color checker was used.
== END 2023-11-29 07:46 | disposition home or self-care (01) ==
LOC: RAD 07:45
PROVIDERS: PCP Family Medicine; Visit Provider Family Medicine
DX: Z12.31 Encounter for screening mammogram for malignant neoplasm of breast (principal); R92.333 Mammographic heterogeneous density, bilateral breasts
CPT/HCPCS: 77063; 77067

== ENCOUNTER → 2024-08-31 08:07 | Outpatient (BNVA) | payer MEDICAID, SELFPAY | PROVIDERS: PCP Family Medicine; Visit Provider Family Medicine | DX: I10 Essential (primary) hypertension (principal); E78.5 Hyperlipidemia, unspecified | CPT/HCPCS: 80053; 80061 ==

== ENCOUNTER 2024-11-30 07:49 | Outpatient (CLI) | payer MEDICAID, SELFPAY ==
--- NOTE | 2024-11-30 07:55 | MM_ITS ---
WS: [id number] BILATERAL SCREENING DIGITAL TOMOSYNTHESIS MAMMOGRAM WITH CAD HISTORY: SCREENING COMPARISON: 11/29/2023, 11/26/2022 Bilateral CC and MLO views with tomosynthesis and synthetic mammography submitted. Computer aided detection analyzed. Breast composition: There are scattered areas of fibroglandular density. No suspicious masses, microcalcifications or architectural distortion. Stable asymmetry upper outer quadrant LEFT breast. MM/MM scr BI tomosynthesis [id number] IMPRESSION: BI-RADS: 2 - Benign. FOLLOW UP: 1 Year Follow-up
== END 2024-11-30 07:50 | disposition home or self-care (01) ==
LOC: RAD 07:50
PROVIDERS: PCP Family Medicine; Visit Provider Family Medicine
DX: Z12.31 Encounter for screening mammogram for malignant neoplasm of breast (principal); R92.323 Mammographic fibroglandular density, bilateral breasts; R92.8 Other abnormal and inconclusive findings on diagnostic imaging of breast
CPT/HCPCS: 77063; 77067